=== PATIENT | female | born 1975 | race African-American/Black ===

== ENCOUNTER 2018-01-05 01:54 | Emergency (ER) | payer OTHER ==
[~2018-01-05] VITALS: Ht 157.5 cm; Wt 70.6 kg
[~2018-01-05 01:54] MED LIST: CETRAXAL1 EACH LEFT EAR; FLONASE16 G1 BOTH NARES
[2018-01-05] MEDS ORDERED: PERCOCET 5/31 TABLET PO (05:34)
[2018-01-05] MEDS ORDERED: FLEXERIL10 MG PO (05:34)
[2018-01-05 05:48] VITALS: BP 111/77
== END 2018-01-05 05:49 | disposition home or self-care (01) ==
LOC: EME 01:54
DX: S16.1XXA Strain of muscle, fascia and tendon at neck level, initial encounter (principal); S46.911A Strain of unspecified muscle, fascia and tendon at shoulder and upper arm level, right arm, initial encounter; S40.011A Contusion of right shoulder, initial encounter; V49.50XA Passenger injured in collision with unspecified motor vehicles in traffic accident, initial encounter; Y92.410 Unspecified street and highway as the place of occurrence of the external cause; J45.909 Unspecified asthma, uncomplicated; J31.0 Chronic rhinitis; F17.200 Nicotine dependence, unspecified, uncomplicated
CPT/HCPCS: 71045; 72125; 73030; 99281; 99285